=== PATIENT | female | born 1990 | race Caucasian/White ===

== ENCOUNTER 2017-08-23 15:52 | Emergency (ER) | payer OTHER ==
[2017-08-23] MEDS: IBUPROFEN 800 MG TAB PO (18:12)
== END 2017-08-23 21:28 | disposition home or self-care (01) ==
LOC: FTE 15:52
DX: S20.212A Contusion of left front wall of thorax, initial encounter (principal); V49.40XA Driver injured in collision with unspecified motor vehicles in traffic accident, initial encounter
CPT/HCPCS: 71045; 99283-25